=== PATIENT | male | born 1975 | race Caucasian/White ===

== ENCOUNTER → 2016-12-24 | Outpatient (CLI) | payer OTHER ==
[~2016-12-24] MED LIST: CIPR-255 PO
--- NOTE | 2016-12-24 13:52 | DIAGNOSTIC IMAGING REPORT ---
RIGHT ANKLE 3 VIEWS HISTORY: Right ankle pain. COMPARISON: None. FINDINGS: No acute fracture or dislocation within the right ankle. Postoperative changes consistent with a bimalleolar fracture. The hardware appears intact. No abnormal periprosthetic lucency. Severe cartilage space narrowing with zhef-wr-fvik articulation, subchondral sclerosis, and large osteophytes at the tibiotalar joint. This is consistent with degenerative change. Mild soft tissue swelling. No radiopaque foreign bodies. Small ossific densities at the medial and lateral malleolus consistent with old avulsion injuries. IMPRESSION: 1. 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 2. Old postoperative changes. The hardware appears intact. 3. No acute fracture or dislocation. Electronically signed by: Chris Gavin M.D. 12/24/2016 1:50 PM Dictated Date/Time: 12/24/2016 1:49 PM
--- NOTE | 2016-12-24 13:54 | DIAGNOSTIC IMAGING REPORT ---
LEFT KNEE 1 OR 2 VIEWS ROUTINE CLINICAL HISTORY: Left knee pain and instability. COMPARISON: None. DISCUSSION: No acute fractures are visualized. There is significant patella love. IMPRESSION: 1. Patella love 2. No acute fractures Electronically signed by: Titus Hartley M.D. 12/24/2016 1:52 PM Dictated Date/Time: 12/24/2016 1:51 PM
--- NOTE | 2016-12-24 14:06 | DIAGNOSTIC IMAGING REPORT ---
AP RADIOGRAPHS OF THE KNEES CLINICAL HISTORY: Instability of left knee joint COMPARISON: None FINDINGS: Standing radiographs of both knees demonstrate no significant abnormality. Medial and lateral compartment joint spaces are preserved. No fracture or suspicious lesion is present. IMPRESSION: 1. No significant abnormality within the medial or lateral compartments of either knee. 2. Possible lateral patellar tilt and slight patella love which is suboptimally assessed on this AP projection. Electronically signed by: Chava Graff M.D. 12/24/2016 2:04 PM Dictated Date/Time: 12/24/2016 1:56 PM
== END | disposition home or self-care (01) ==
LOC: C.RADPV 13:25
PROVIDERS: ATTEND Neuromusculoskeletal Medicine & OMM
DX: M25.362 Other instability, left knee (principal); M25.562 Pain in left knee; M19.071 Primary osteoarthritis, right ankle and foot

== ENCOUNTER → 2017-02-06 | Outpatient (CLI) | payer OTHER ==
[2017-02-06 13:21] LABS: BASO % 0.3 %; BASO ABS # 0.04 K/uL (0-0.2); COMPLETE YES; EOS % 2.5 %; HEMATOCRIT 45.7 % (42-52); IG% 0.3 %; LYMPH % 19.7 %; LYMPH ABS # 2.59 K/uL (1.2-3.4); MEAN CELL VOLUME 87.2 fL (80-100); MEAN CORPUSCULAR HEMOGLOBIN 30.3 pg (25-34); MEAN CORPUSCULAR HGB CONC 34.8 g/dl (32-36); MEAN PLATELET VOLUME 11.3 fL (7.4-10.4); MONO % 8.4 %; NEUT % 68.8 %; PLATELET COUNT 261 K/uL (130-400); RED BLOOD COUNT 5.24 M/uL (4.7-6.1); WHITE BLOOD COUNT 13.12 K/uL (4.8-10.8)
[2017-02-06 13:37] LABS: ALT/SGPT 25 U/L (12-78); BLOOD UREA NITROGEN 13 mg/dl (7-18); BUN/CREATININE RATIO 13.2 (10-20); CALCIUM 9.1 mg/dl (8.5-10.1); CARBON DIOXIDE 25 mmol/L (21-32); CHLORIDE 107 mmol/L (98-107); CHOLESTEROL 119 mg/dl (0-200); CREATININE 0.98 mg/dl (0.60-1.40); GLUCOSE 89 mg/dl (70-99); POTASSIUM 4.1 mmol/L (3.5-5.1); SODIUM 140 mmol/L (136-145); TRIGLYCERIDES 80 mg/dl (0-150); VERY LOW DENSITY LIPOPROT CALC 16 mg/dl
[2017-02-06 13:47] LABS: ALKALINE PHOSPHATASE 76 U/L (45-117); AST/SGOT 13 U/L (15-37); CHOLESTEROL/HDL RATIO 3.1; HDL CHOLESTEROL 38 mg/dl; LDL CHOLESTEROL CALCULATED 65 mg/dl
== END | disposition home or self-care (01) ==
LOC: C.LABPVFM 10:13
PROVIDERS: ATTEND Nurse Practitioner Family
DX: I49.9 Cardiac arrhythmia, unspecified (principal); E66.9 Obesity, unspecified

== ENCOUNTER → 2017-02-18 | Outpatient (CLI) | payer OTHER ==
[~2017-02-18] MED LIST changes: +ATROPINE SULFATE 0.1 MG/ML 5ML SYR ONE; +DOBUTamine 500MG / 250ML D5W ONE; +METOPROLOL TARTRATE 1 MG/ML VIAL ONE; +PERFLUTREN LIPID MICROSPHERE (DEFINITY) IV ONE
--- NOTE | 2017-02-18 12:17 | DOBUTAMINE ECHO ---
*NOTICE TO RECEIVING CONSTITUTION PARTY AGENCY This information is strictly Confidential and protected under [place] law. [place] law prohibits you from making any further disclosure of this information unless further disclosure is expressly permitted by the written consent of the person to whom it pertains or is authorized by law. A general authorization for the release of medical or other information is not sufficient for this purpose. Hospital accepts no responsibility if the information is made available to any other person, INCLUDING THE PATIENT. Interpretation Summary * Name: REBECCA KING Study Date: 02/18/2017 09:19 AM BP: 110/75 mmHg * Patient Location: [facility] HR: 61 * : 1975 (M/d/yyyy) Gender: Male Height: 72 in * Age: 41 yrs Ethnicity: CA Weight: 270 lb * Ordering Physician: Sue Trivedi * Referring Physician: Sue Trivedi * Performed By: Rica Mathews RDCS * * Reason For Study: CHEST TIGHTNESS, PRESSURE, PVCS * BSA: 2.4 m2 * -- Conclusions -- * Dobutamine Stress Echo: * 1. Nondiagnostic Dobutamine stress echo as target heart rate was not attained. There were no ischemic changes noted at 75% MPHR. * 2. Nondiagnostic Dobutamine ECG as target heart rate was not attained. * 3. Appropriate blood pressure response. * 4. No arrhythmia. * 5. Study was terminated early due to patient request secondary to nausea, lightheadedness, and tingling sensation throughout his body. No chest pain or shortness of breath reported. * 6. Technically difficult study, enhanced with IV Definity. * Echo: * 1. Normal left ventricular size and systolic function. EF 55-60%. No regional wall motion abnormalities. Moderate concentric left ventricular hypertrophy. * 2. No significant valvular abnormalities. * 3. No prior study available for comparison. Procedure Details * DOBUTAMINE ECHO, CPT#74523 * A contrast injection of Definity was performed to improve assessment of LV function. * Contrast was injected into an intravenous site in the right arm. * One vial of Definity ultrasound contrast was diluted in normal saline to a total volume of 10 ml. A total of '7' ml of solution was administered during imaging. * Lot # [id number] of Definity utilized for procedure. * Expiration date MAR 03. * The attending nurse who injected the contrast agent was ERIK MCNAMARA RN. Left Ventricle * The left ventricle is normal in size. * There is moderate concentric left ventricular hypertrophy. * Ejection Fraction = 55-60%. * Left ventricular systolic function is normal. * The left ventricular ejection fraction increases normally with stress. The left ventricular end-systolic cavity size reduces post-stress (normal response). The left ventricular wall motion with stress is normal. * No regional wall motion abnormalities noted. * Resting wall motion: Normal. Stress wall motion: Appropriate increase in Left ventricular systolic function and decrease in cavity size. No stress induced segmental wall motion abnormalities. Right Ventricle * The right ventricle is normal in size and function. * The right ventricular systolic function is normal as assessed by tricuspid annular plane systolic excursion (TAPSE) (normal >1.5 cm). Atria * The left atrial size is normal. * Right atrial size is normal. * There is no evidence of atrial septal defect, but resolution does not allow assessment for a patent foramen ovale. Mitral Valve * The mitral valve is grossly normal. * There is no mitral valve stenosis. * There is trace mitral regurgitation. Tricuspid Valve * The tricuspid valve is not well visualized, but is grossly normal. * There is no tricuspid stenosis. * Significant tricuspid regurgitation is absent. Aortic Valve * The aortic valve is trileaflet. * No hemodynamically significant valvular aortic stenosis. * No aortic regurgitation is present. Pulmonic Valve * The pulmonary valve is inadequately visualized, but the Doppler data is adequate for interpretation. * There is no significant pulmonary regurgitation. Great Vessels * The aortic root is normal size. * Aortic arch of normal dimension. * Normal pulmonary venous flow pattern. Normal IVC size and inspiratory collapse. Pericardium * There is no pericardial effusion. Stress Parameters * NSR at 69 bpm. * Stress ECG: No ST changes. No arrhythmias. * No arrhythmia were noted with stress. * Rest heart rate was '61' BPM. * Rest blood pressure was '110/75' * Maximum heart rate achieved was 136 bpm. * Maximum heart rate was 75 % of maximum age-predicted heart rate. * Maximum blood pressure was '162/59' * Maximum Dobutamine infusion rate was '40' mcg/kg/min. * A total of .25 mg of intravenous Atropine was used to supplement Dobutamine for heart rate response. * Dobutamine infusion was terminated due to patient request * A total of 5 mg of IV Metoprolol was administered to reverse Dobutamine-induced tachycardia. * Study was terminated early due to patient request secondary to nausea, lightheadedness, and tingling sensation throughout his body. No chest pain or shortness of breath reported. Left Ventricular Diastolic Function * No significant diastolic dysfunction. MMode 2D Measurements and Calculations IVSd 1.4 cm IVSs 1.9 cm LVIDd 4.6 cm LVIDs 3.2 cm LVPWd 1.4 cm LVPWs 2.1 cm IVS/LVPW 1.0 FS 30.7 % EDV(Teich) 99.6 ml ESV(Teich) 41.6 ml EF(Teich) 58.3 % EDV(cubed) 100.3 ml ESV(cubed) 33.4 ml EF(cubed) 66.7 % % IVS thick 35.7 % % LVPW thick 50.3 % LV mass(C)d 257.1 grams LV mass(C)dI 106.2 grams/m\S\2 LV mass(C)s 281.7 grams LV mass(C)sI 116.4 grams/m\S\2 SV(Teich) 58.0 ml SI(Teich) 24.0 ml/m\S\2 SV(cubed) 66.9 ml SI(cubed) 27.6 ml/m\S\2 Ao root diam 3.8 cm Ao root area 11.2 cm\S\2 LA dimension 3.8 cm LA/Ao 1.0 LVAd ap4 43.7 cm\S\2 LVLd ap4 10.3 cm EDV(MOD-sp4) 157.7 ml EDV(sp4-el) 157.3 ml LVAs ap4 24.3 cm\S\2 LVLs ap4 8.5 cm ESV(MOD-sp4) 61.5 ml ESV(sp4-el) 59.3 ml EF(MOD-sp4) 61.0 % EF(sp4-el) 62.3 % LVAd ap2 38.9 cm\S\2 LVLd ap2 10.1 cm EDV(MOD-sp2) 127.6 ml EDV(sp2-el) 127.1 ml LVAs ap2 21.6 cm\S\2 LVLs ap2 8.6 cm ESV(MOD-sp2) 55.5 ml ESV(sp2-el) 46.2 ml EF(MOD-sp2) 56.5 % EF(sp2-el) 63.7 % LVLd %diff -2.04 % EDV(MOD-bp) 144.3 ml LVLs %diff 1.1 % ESV(MOD-bp) 57.0 ml EF(MOD-bp) 60.5 % SV(MOD-sp4) 96.2 ml SI(MOD-sp4) 39.7 ml/m\S\2 SV(MOD-sp2) 72.0 ml SI(MOD-sp2) 29.8 ml/m\S\2 SV(MOD-bp) 87.3 ml SI(MOD-bp) 36.1 ml/m\S\2 SV(sp4-el) 98.0 ml SI(sp4-el) 40.5 ml/m\S\2 SV(sp2-el) 81.0 ml SI(sp2-el) 33.4 ml/m\S\2 Doppler Measurements and Calculations MV E max kelly 55.1 cm/sec MV A max kelly 51.0 cm/sec MV E/A 1.1 MV dec time 0.23 sec Ao V2 max 142.1 cm/sec Ao max PG 8.1 mmHg Ao max PG (full) 3.5 mmHg LV V1 max PG 4.5 mmHg LV V1 max 106.6 cm/sec TV E max kelly 50.0 cm/sec
== END | disposition home or self-care (01) ==
LOC: C.CPL 09:07
PROVIDERS: ATTEND Family Medicine
DX: R07.89 Other chest pain (principal)

== ENCOUNTER → 2017-02-22 | Outpatient (CLI) | payer OTHER ==
[~2017-02-22] MED LIST changes: -ATROPINE SULFATE 0.1 MG/ML 5ML SYR ONE; -DOBUTamine 500MG / 250ML D5W ONE; -METOPROLOL TARTRATE 1 MG/ML VIAL ONE; -PERFLUTREN LIPID MICROSPHERE (DEFINITY) IV ONE
--- NOTE | 2017-02-22 16:44 | DIAGNOSTIC IMAGING REPORT ---
CT SCAN OF THE RIGHT ANKLE WITHOUT IV CONTRAST CLINICAL HISTORY: Right ankle pain. Posttraumatic osteoarthrosis of the ankle. COMPARISON STUDY: Radiographs of the right ankle dated 12/24/2016. TECHNIQUE: CT scan of the right ankle is performed from the distal tibia and fibula to the foot. Images are reviewed in the axial, sagittal, and coronal planes. IV contrast was not administered for this examination. A dose lowering technique was utilized adhering to the principles of ALARA. CT DOSE: 200.20 mGy.cm FINDINGS: The skeletal structures are osteopenic. No acute fracture is seen. There is chronic posttraumatic deformity of the distal tibia and fibula. Two cortical lag screws transfix the medial malleolus. A buttress plate spans the distal fibula. Numerous cortical lag screws transfix the buttress plate. The orthopedic hardware appears intact. There is advanced arthritic change at the tibiotalar articulation, with near complete loss of the joint space. This is greatest centrally and laterally. There is bony sclerosis and subchondral cyst formation. Large osteophytes are seen along the lateral aspect of the tibiotalar joint. Bony overgrowth versus small avulsion injuries are also seen along the inferior aspect of the medial malleolus. The remaining joint spaces of the hindfoot are preserved. There remains normal fat in the sinus tarsi. There is a small ankle joint effusion. No loose interarticular bodies are suggested in the ankle joint. The Achilles tendon is intact as visualized. The regional musculature is normal in appearance. IMPRESSION: 1. 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 2. There is age advanced arthritic change at the ankle joint, greatest at the tibiotalar articulation as above. 3. Small joint effusion. No joint body is clearly seen. Dictated: 02/22/2017 4:06 PM Transcribed: 02/22/2017 4:44 PM Soumya Electronically signed by: Christopher Andrew M.D. 02/23/2017 7:57 AM Dictated Date/Time: 02/22/2017 4:06 PM
== END | disposition home or self-care (01) ==
LOC: C.CTS 14:47
PROVIDERS: ATTEND Orthopaedic Surgery Sports Medicine
DX: M19.171 Post-traumatic osteoarthritis, right ankle and foot (principal)

== ENCOUNTER → 2017-04-01 | Outpatient (CLI) | payer OTHER ==
[~2017-04-01] MED LIST changes: +REGADENOSON 0.4 MG/5 ML SYR ONE
--- NOTE | 2017-04-01 16:37 | Myocardial Perfusion Study ---
Myocardial Perfusion Study Rpt Myocardial Perfusion Study Rpt Date of Service 04/01/17 Myocardial Perfusion Study Rpt Procedure: 1. Myocardial perfusion study performed in multiple views/images 2. Lexiscan pharmacologic stress ECG Indications: 1. Dyspnea with exertion 2. LVH Consent: Informed written consent was obtained prior to the procedure. Ordering physician: Shamika Bacon PA-C Procedural details: For the stress portion of the study, Lexiscan 0.4 mg was intravenously administered followed by a saline flush. This was followed by 32.6 mCi of technetium 99m Cardiolite, injected at 11:15 a.m. on 04/01/2017. 30 minutes following the injection, imaging of the heart was performed in multiple projections. For the rest portion of the study, 10.2 mCi technetium 99m Cardiolite was injected intravenously at 9:40 a.m. on 04/01/2017. 1 hour following the injection, imaging of the heart was performed in the same projections. Lexiscan stress ECG: Resting ECG demonstrated: NSR at 61 bpm. Early repolarization. Maximum heart rate: 98 bpm Resting blood pressure: 119/87 mmHg Maximum blood pressure: 133/75 mmHg Maximal, age-predicted heart rate: 54 % Significant ST changes: None Arrhythmia: None Symptoms: Chest tightness Findings: Rotating raw imaging demonstrated no significant lung uptake. There is no significant motion artifact. Heart size appeared normal. Myocardial perfusion demonstrated a small, very mild defect involving the mid to distal anterior and anteroseptal wall, which was mostly fixed. There was no significant ischemic territory suggested. Ejection fraction: 63 % Wall motion: Normal No significant transient ischemic dilation. Impression: 1. No significant inducible ischemic changes suggested on myocardial perfusion study. 2. Small, very mild fixed defect may represent attenuation artifact given normal wall motion. 3. Normal wall motion and LV systolic function. EF 63%. 4. Lexiscan induced chest tightness. 5. Nondiagnostic Lexiscan ECG.
== END | disposition home or self-care (01) ==
LOC: C.NUCL 09:10
PROVIDERS: ATTEND Physician Assistant
DX: Z01.810 Encounter for preprocedural cardiovascular examination (principal); F17.210 Nicotine dependence, cigarettes, uncomplicated; I51.7 Cardiomegaly; R06.09 Other forms of dyspnea

== ENCOUNTER → 2017-04-27 | Outpatient (CLI) | payer OTHER ==
[~2017-04-27] MED LIST changes: -REGADENOSON 0.4 MG/5 ML SYR ONE
[2017-04-27 16:48] LABS: BLOOD UREA NITROGEN 15 mg/dl (7-18); BUN/CREATININE RATIO 14.8 (10-20); CALCIUM 9.3 mg/dl (8.5-10.1); CARBON DIOXIDE 26 mmol/L (21-32); CHLORIDE 104 mmol/L (98-107); GLUCOSE 95 mg/dl (70-99); POTASSIUM 3.9 mmol/L (3.5-5.1); SODIUM 137 mmol/L (136-145)
== END | disposition home or self-care (01) ==
LOC: C.LAB 14:53
PROVIDERS: ATTEND Physician Assistant
DX: I10 Essential (primary) hypertension (principal)

== ENCOUNTER → 2017-06-18 | Outpatient (CLI) | payer OTHER ==
[~2017-06-18] VITALS: Ht 182.9 cm; Wt 125.8 kg
[2017-06-18 16:23] VITALS: BP 136/88; PULSE 87; Ht 182.9 cm; Wt 125.8 kg
== END | disposition home or self-care (01) ==
LOC: C.NEUR 15:02
PROVIDERS: ATTEND Internal Medicine Pulmonary Disease
DX: G47.9 Sleep disorder, unspecified (principal); I51.7 Cardiomegaly; E66.9 Obesity, unspecified; G47.61 Periodic limb movement disorder

== ENCOUNTER → 2017-06-30 | Outpatient (CLI) | payer OTHER ==
--- NOTE | 2017-07-01 05:42 | PAP/PSG TECHNICIAN REPORT ---
[facility] Bed Spring Maker Polysomnogram Report Study name: None Report date: 07/01/2017 Study date: 06/30/2017 Referring Physician: Charo Davidson Name: REBECCA RMOO Interpreting Physician: Jacob López M.D. Date of : 1975 Bed Spring Maker: Cait Herrera, PSGT. Sex: Male Age: 41 StudyType: PSG Weight: 277 lbs Height: 41 years, Height 6' 0" Neck Circum:19.5 inches BMI: 37.56 Medications: IBP 200 mg, Lisinopril 10 mg, Tylenol. Patient History 41-year-old male presents to the sleep lab, for a diagnostic sleep study. Patient states that he suffers from left ventricular hypertrophy, PLMD, and obesity. He states that it takes him 30 minutes or more to fall asleep, and he states that he wakes often during sleep.Ess= 3, Neck = 19.5 inches. Parameters Monitored NPSG: E1-M2, E2-M1, Fp1-M2, Fp2-M1, F3-M2, F4-M2, F4-M1, C3-M2, C4-M2, C4-M1, O1-M2, O2-M2, O2-M1, T3-M2, T4-M1, P3-M2, P4-M1, CHIN1, CHIN2, HR, EKG, Legs, PFLOW, SNOR, FLOW, CFLOW, Tidal Volume, THOR, ABDO, SpO2, PLTH, CPRESS, ETCO2 Wave, ETCO2, pH Sleep Architecture Sleep Stages Time at Lights Off 9:40:44 PM STAGES Time (min.) TST (%) Time at Lights On 5:14:14 AM Wake 89.5 -- Total Recording Time (TRT) 453.50 min. N1 16.0 4 Total Sleep Period (TSP) 389.5 min. N2 261.5 72 Total Sleep Time (TST) 363.5min. N3 9.5 3 Awake Time 89.5 min. REM 76.5 21 Wake after Sleep Onset 26.0 min. Sleep Efficiency (SE) 80 % Sleep Onset Latency (PRACHI) 64.0 min. Number of Stage 1 Shifts None Awakenings 8 Stage Changes 45 Number of REM periods 7 REM 76.5 21 REM Latency 137.5 min. NREM 287.0 79 Body Position Analysis Supine Right Left Side Prone Vertical Total Sleep Time (min.) 305.1 118.4 0.0 118.41 0.0 6.4 Total Sleep Time (%) 67% 33% 0% 33 0% N/A% Total Sleep Time REM (min.) 73.6 2.9 0.0 None 0.0 0.0 Total Sleep Time NREM (min.) 171.5 115.5 0.0 None 0.0 0.0 Intermittent Wake (min.) 60.0 12.8 10.3 None 0.0 6.4 Total Sleep Period (%) 66% None None None None None Arousals Myoclonus (PLM) * Events Count Index Events Count Index Spontaneous 29 5 Events Awake (PLMW) 2 1.3 Respiratory 3 0.5 Events Asleep w/ Arousal (PLMA) 2 0.3 PLM 2 0 Events Asleep w/o Arousal (PLMS) 56 9.2 Snoring 8 1 Total Asleep 58 9.6 Total 42 7 Total 60 8 Respiratory Analysis * CA OA MA CH H RERA Total Count 0 0 0 0 35 0 35 Index 0.0 0.0 0.0 0 5.8 0 5.8 Mean Duration 0.0 0.0 0.0 0.00 15.9 0.0 15.9 Longest Duration 0.0 0.0 0.0 0.00 0.0 0.0 31.1 Respiratory Event Summary Total Supine ~Supine Right Left Prone REM NREM Apneas Count 0 0 0 0 N/A N/A 0 0 Index 0.0 0 0 0.0 N/A N/A 0 0 Hypopneas (4% Desat) Count 35 21 14 14 N/A N/A 19 16 Index 5.8 5.1 7 7.1 N/A N/A 14.9 3.3 Apneas & All Hypopneas Count 35 21 14 14 N/A N/A 19 16 Index 5.8 5 7 7 N/A N/A 14.9 3.3 Respiratory Events (Customer Care Coordinator+All Hyp+RERA) Count 35 21 14 14 N/A N/A 19 16 Index 5.8 5 7 7.1 N/A N/A 14.9 3.3 Respiratory Related Arousal Count 3 21 1 1 N/A N/A 2 1 Index 0.5 0 1 1 N/A N/A 2 0 Snoring Analysis Supine Right Left Prone REM NREM Total Snore duration 44.6 min Snores count 1,356 874 N/A N/A 263 1,967 2,230 Snore mean duration 1.2 Sec Snores index 332 443 N/A N/A 206.3 411.2 368.1 TST with snoring (%) 12.3% Desaturation Event Summary: Minimum %SpO2 Event Count Mean/Min/Max Duration(sec.) Desaturation Index % Time In Bed > 90 42 25.7 / 8.0 / 50.5 12.5 44.5 86 - 90 27 22.3 / 8.8 / 50.5 6.5 54.9 81 - 85 0 N/A 0.0 0.6 76 - 80 0 N/A 0.0 0.0 71 - 75 0 N/A 0.0 0.0 66 - 70 0 N/A 0.0 0.0 61 - 65 0 N/A 0.0 0.0 56 - 60 0 N/A 0.0 0.0 51 - 55 0 N/A 0.0 0.0 < 50 0 N/A 0.0 0.0 Total REM NREM Awake <50% 0.0 min. 0.0 min. 0.0 min. 0.0 min. 51 - 60% 0.0 min. 0.0 min. 0.0 min. 0.0 min. 61 - 70% 0.0 min. 0.0 min. 0.0 min. 0.0 min. 71 - 80% 0.0 min. 0.0 min. 0.0 min. 0.0 min. 81 - 90% 251.3 min. 48.7 min. 191.5 min. 11.2 min. 91 - 100% 201.7 min. 27.8 min. 95.5 min. 78.3 min. Average 90 90 90 93 Minimum SpO2 81 81 85 88 Desaturation Event Index 6.0 19.6 4.4 0.0 # Desat. Events below 89% 37 24 13 N/A Time(%) with Saturation below 89% 9.8 3.7 6.0 0.1 Time(min.) with Saturation below 89% 44.6 16.9 27.4 0.3 Time (mins) REM (mins) NREM (mins) % of TST SpO2 Below 90% 45 25 N20 39.5 SpO2 Below 88% 16 0 0 2 Heart Rate Analysis Min (bpm) Max (bpm) Average (bpm) Awake 56 97 74 NREM 52 98 76 REM 54 89 74 Overall 52 98 76 Supplemental O2 Values Minimum O2 level: None Value Start Time End Time Bed Spring Maker Comments PSG Study Mr. Romo slept in the right, left, and supine positions. No cardiac arrhythmia or PLM's noted. No bruxism noted. Snoring was noted and scored as a 4 on a scale of 1 through 5. (0=no snoring, 5=snoring loud enough to be heard through a closed door or down the larose way) Mr. Romo awoke to use the restroom zero times during the night. stated, I did not sleep as well as I do when I am in my own bed. The final report will be interpreted and signed by a sleep physician. The completed physician report will then be placed in the patient medical record. Therapy (cm H2O) 0 TIB (min.) 453.0 TST (min.) 363.5 Sleep Onset (min.) 64.0 REM Onset From Sleep (min.) 137.5 Sleep Efficiency % 80 Wakefulness (%) 20 Wakefulness (min.) 89.5 NREM 1 (%) 4 NREM 1 (min.) 16.0 NREM 2 (%) 72 NREM 2 (min.) 261.5 NREM 3 (%) 3 NREM 3 (min.) 9.5 REM (%) 21 REM (min.) 76.5 # Arousals 42 Arousal Index 7 # Snore 2,230 Snore Index 368.1 AHI 5.8 AHI Supine 5 AHI Non-Supine 7 NREM AHI 3.3 REM AHI 14.9 RDI 5.8 # Obstructive Apnea 0 # Central Apnea 0 # Mixed Apnea 0 # Hypopneas 35 RERAs 0 Total Respiratory Events 35 Time Below SpO2 89% (min.) 44.3 Mean NREM SpO2 (%) 90 Mean REM SpO2 (%) 90 Mean Sleep SpO2 (%) 90 Min NREM SpO2 (%) 85 Min REM SpO2 (%) 81 Position Supine (min.) 305.1 Position Non-supine (min.) 118.4 LM Index Sleep 9.6 LM Index NREM 11.7 LM Index REM 1.6 Mean Heart Rate (bpm) 76 Min Heart Rate (bpm) 52
--- NOTE | 2017-07-02 09:17 | POLYSOMNOGRAPH REPORT ---
CLINICAL DATA: A 41-year-old male with BMI of 37.6, referred by STEVE Hdz, for evaluation of left ventricular hypertrophy, limb movements at night, obesity and frequent awakenings through the night. His [place] Sleepiness score is 3/24. SLEEP ARCHITECTURE: Total sleep period was 389.5 minutes. Total sleep time was 363.5 minutes divided between 287 minutes of non-REM sleep and 76.5 minutes of REM sleep. Sleep latency was delayed at 64 minutes. REM latency was 137.5 minutes. Sleep efficiency was 80%. Wake after sleep onset was 26 minutes. Sleep consisted of stage N1 4%, stage N2 72%, stage N3 3%, and REM 21%. AROUSAL DATA: 42 arousals were recorded for an index of 7 per hour. PERIODIC LIMB MOVEMENT DATA: 58 limb movements during sleep were noted for an index of 9.6 per hour with arousal index of 0.3 per hour. RESPIRATORY DATA: Very mild sleep apnea was documented. The AHI was 5.8. There were 35 hypopneic episodes with a mean duration of 15.9 seconds. OXIMETRY DATA: Nocturnal hypoxemia was seen. Oxygen korina was 81% during REM. Mean saturation was 90%. Time below 88% was 16 minutes. EKG: Heart rates ranged from 52-98 beats per minute. No arrhythmias were noted. TRAVEL INSURANCE AGENT'S COMMENTS: The patient slept in the right, left and supine positions. Snoring was severe, rated 4 on a scale of 1-5. IMPRESSION: Mild sleep apnea/hypopnea with nocturnal hypoxemia. RECOMMENDATIONS: The patient may benefit from weight loss, use of an oral appliance or a repeat sleep study with CPAP. Sleep medicine consultation may be of benefit. Clinical correlation is needed. FUNMILAYOD
== END | disposition home or self-care (01) ==
LOC: C.NEUR 21:00
PROVIDERS: ATTEND Internal Medicine Pulmonary Disease
DX: I51.7 Cardiomegaly (principal); E66.9 Obesity, unspecified; G47.61 Periodic limb movement disorder; G47.9 Sleep disorder, unspecified

== ENCOUNTER 2021-01-17 21:08 | Observation (INO) ==
[2021-01-17] MEDS ORDERED: VANCOMYCIN CONSULT ACTIVE PRN (22:17)
[2021-01-17] MEDS ORDERED: VANCOMYCIN HCL 1,000 MG in SODIUM CHLORIDE 0.9% 250 ML IV SCH (22:17)
[2021-01-17 22:54] LABS: Basophils # (auto) 0.03 K/uL (0-0.2); Basophils % (auto) 0.2 %; Eosinophils # (auto) 0.28 K/uL (0-0.5); Eosinophils % (auto) 2.1 %; Hematocrit (blood only) 43.8 % (42-52); Immature Granulocytes # (auto) 0.08 K/uL (0.00-0.02); Immature Granulocytes % (auto) 0.6 %; Lymphocytes # (auto) 2.54 K/uL (1.2-3.4); Lymphocytes % (auto) 19.1 %; Mean Corpuscular Hemoglobin 30.5 pg (25-34); Mean Corpuscular Hgb Conc 34.2 g/dL (32-36); Mean Corpuscular Volume 89.2 fL (80-100); Mean Platelet Volume 10.4 fL (7.4-10.4); Monocytes # (auto) 1.71 K/uL (0.11-0.59); Monocytes % (auto) 12.9 %; Neutrophils # (auto) 8.63 K/uL (1.4-6.5); Neutrophils % (auto) 65.1 %; Platelet Count 239 K/uL (130-400); RDW Coefficient of Variation 14.5 % (11.5-14.5); RDW Standard Deviation 47.1 fL (36.4-46.3); Red Blood Count 4.91 M/uL (4.7-6.1); White Blood Count 13.27 K/uL (4.8-10.8)
[2021-01-17 23:14] LABS: C Reactive Protein 5.69 mg/dl (0-0.29)
[2021-01-18] MEDS ORDERED: METOCLOPRAMIDE HCL INJ 5 MG/ML 2 ML VIAL IV PRN (01:27)
[2021-01-18] MEDS ORDERED: ACETAMINOPHEN 325 MG TAB PO PRN (01:27)
[2021-01-18] MEDS ORDERED: oxyCODONE HCL IR 5 MG TAB (IMMEDIATE RELEASE) PO PRN (01:27)
[2021-01-18] MEDS ORDERED: ONDANSETRON INJ 2 MG/ML 2 ML VIAL IV PRN (01:27)
[2021-01-18] MEDS ORDERED: diphenhydrAMINE Capsule 25 MG CAP PO PRN (01:27)
[2021-01-18] MEDS ORDERED: VANCOMYCIN CONSULT ACTIVE PRN (01:27)
[2021-01-18] MEDS ORDERED: VANCOMYCIN HCL 1,250 MG in SODIUM CHLORIDE 0.9% 250 ML IV ONE (02:00)
[2021-01-18] MEDS: CELECOXIB 100 MG CAP PO SCH ×2 (02:11→13:25)
--- NOTE | 2021-01-18 02:41 | Consultation Report ---
HISTORY OF PRESENT ILLNESS: Patient is 45 years old. He is status post left knee patellar tendon re pair done by Dr. Estes on Wednesday. He changed his dressing today and noted that there was some redn ess around the wound area. Also reports feeling of malaise. He reports chills and sweats and having fever, although he did not use a thermometer to take his temperature. They contacted me when I was on-call and I asked him to come to the Emergency Room where he is evaluated. PAST MEDICAL HISTORY: His past medical history is reviewed and noted. He has a recent left patellar tendon repair. He smokes. He has had prostatitis and a single kidney. COPD is listed along with h ypertension, depression and anxiety. ALLERGIES: HE IS ALLERGIC TO DOBUTAMINE, CINNAMON, AND CIPROFLOXACIN. PAST SURGICAL HISTORY: He has had arthroscopic knee surgery. MEDICATIONS: Other than anti-inflammatory, Tylenol, and aspirin, he is not taking other medications per his report. It is listed that he takes Tylenol, albuterol inhaler, ibuprofen, Zofran, oxycodone, and tamsulosin. SOCIAL HISTORY: He smokes. PHYSICAL EXAMINATION: GENERAL: He is afebrile. VITAL SIGNS: Stable. EXTREMITIES: Dorsalis pedis and posterior tibial pulses are trace. Calf soft and supple. Sensation intact. Ankle and toe flexion, extension, inversion, eversion is 5/5. Examination of the knee shows bruising medially. Steri-Strips in place with no drainage. There is faint erythema extending sever al inches medial and lateral to the wound along the entire incision. There is a small amount of flui d within the knee joint and I do not feel a substantial amount of fluid within the bursa. There is n o drainage. There is a little bit of faint erythema going up the posterolateral thigh for several in ches, but no red streaking up the back of the leg. IMPRESSION: Left knee pain with redness and constitutional symptoms, status post left knee patellar tendon repair. PLAN: Findings are discussed. Some of this and perhaps all of it could be related to inflammation a fter surgery related to surgical trauma and intraarticular and periarticular bleeding. It is also po ssible that he could be developing an early infection. I think given his recent surgical status, it is reasonable to admit him to the hospital. Elevate the leg and administer IV antibiotics and monito r for resolution. We will place him on anti-inflammatory. He can partial weightbear with his brace locked in extension; aspirin and foot pumps for DVT prophylaxis. Smoking cessation recommended. I s ee no indication at present for the need of surgery. I do not think that there is any fluid accumula tion that is in need of aspiration. Job ID: [id number]
[2021-01-18 03:29] LABS: Est GFR (African American) 121.4 ml/min; Est GFR (Non-African American) 104.7 ml/min
--- NOTE | 2021-01-18 03:47 | Pharmacy Report ---
Pharmacy Vanc AUC Short Note - Date of Service January 18, 2021 - Assessment & Plan Assessment 45 year old M receiving empiric vancomycin for treatment of possible surgical site infection. Patient is s/p left open patellar tendon repair on 01/14/21. Patient reported malaise, chills, fever, and increased redness of site. Patient admitted for IV antibiotics and monitoring. No cultures obtained. Day # 1 of antimicrobial therapy. Plan Vancomycin * AUC/JOHNATHAN is the preferred PK/PD target for vancomycin * AUC guided dosing is effective and associated with decreased risk of nephrotoxicity compared to traditional trough targets * Loading dose of 2250 mg (19 mg/kg) * Vancomycin 1500 mg IV q12h is predicted to achieve target AUC/JOHNATHAN of 400-600 mg/L.hr and may be associated with a 14 % risk of nephrotoxicity * Will order trough once at steady-state if patient is to remain on vancomycin Pharmacy will continue to follow and will adjust dose/frequency as necessary. Thank you.
[2021-01-18] MEDS ORDERED: ASPIRIN 325 MG ECTAB PO SCH (09:00)
[2021-01-18] MEDS ORDERED: DOCUSATE SODIUM 100 MG CAP PO SCH (09:00)
[2021-01-18] MEDS ORDERED: VANCOMYCIN HCL 1,500 MG in SODIUM CHLORIDE 0.9% 500 ML IV SCH (09:00)
[2021-01-18] MEDS ORDERED: ASPIRIN 81 MG ECTAB PO SCH (09:00)
--- NOTE | 2021-01-18 12:11 | Progress Notes ---
DATE OF SERVICE: 01/18/2021. Overall, improved. Less pain. Less nausea. Feels better. He has been afebrile and his vital signs are stable. His COVID test is negative. White count is 13. All of the white count in his computer are elevated slightly. He does have a left shift present today. Sed rate 50. CRP is 5.7. His distal neurovascular function is intact. The wound is examined. There is no subcutaneous fluid collection present. There is a small amount of fluid within the knee joint. Knee range of motion is not assessed. There is progressive bruising on the medial skin flap and also laterally. There is a petechial rash present, particularly noted laterally. The erythema is largely improved if not dissi pated in most areas and does not extend beyond the marked out area. There is no drainage. There is minimal, if any tenderness to palpation over the sides of the incision where the wound was inflamed. I suspect that he has either early cellulitis developing postoperatively or inflammation related to p eriarticular bleeding. This is status post his left patellar tendon repair. I spoke with Dr. Estes and informed him of the situation. The patient wants to go home; however, I have recommended that he stay here. Continue the Celebrex, elevation, icing, and vancomycin. We trip l reassess tomorrow and if continues to improve, we will consider discharge home with followup early next week with Dr. Estes. DVT prophylaxis with aspirin and mechanical devices. He will continue wi th his previous restrictions in terms of knee bending, knee brace, weightbearing crutches. I see no indication for surgery at the present time. Job ID: [id number]
[2021-01-20] MEDS ORDERED: VANCOMYCIN TROUGH ONE (08:30)
--- NOTE | 2021-01-21 09:02 | Discharge Summary (DS) ---
DATE OF NOTE: 01/18/2021 ADMISSION DIAGNOSES: Left knee inflammation versus early cellulitis, status post patellar tendon rep air. DISCHARGE DIAGNOSES: Left knee inflammation versus early cellulitis, status post patellar tendon rep air. PROCEDURES: None. BRIEF HISTORY: The patient is 45 years old. He has recently had a left patellar tendon surgery. Th is was done by Dr. Estes approximately 3-4 days prior to admission. He was concerned about the appe arance of his wound including redness. He was seen and evaluated in the ER. There is nothing that r equired aspiration; however, there was some erythema which could be early inflammation related to hem arthrosis and bleeding versus infection. He was admitted to the hospital. Placed on IV antibiotics and anti-inflammatories. He remained afebrile throughout his hospital stay. His white count was 13, which is elevated. His sed rate 50 and CRP 5.69. COVID was negative. He was admitted to the hospital on 01/17/2021. The following morning, he was assessed. Things were improved. He had less pain, less feelings of constitutional symptoms. There was improved redness ar ound the surgical incision with no drainage. I recommended that he continue to be admitted to the [facility] for intravenous antibiotics for at least another day and for further wound care and assessment . He expressed a desire to leave. I thought I convinced him to stay with some logic and reasoning. However, later in the day, I was contacted by the nurse that he wanted to leave and I suggested that if so, he signed out AMA, which he did. He is to follow up with Dr. Estes. I discussed the care w ith Dr. Estes. Additionally, I sent the patient Bactrim-DS 1 p.o. b.i.d. to his pharmacy, which he is to begin taking upon discharge. DISPOSITION: Signed out AMA. Job ID: [id number]
== END 2021-01-18 13:46 | disposition left against medical advice (07) ==
LOC: ED 21:08 → 3E 21:08